=== PATIENT | male | born 2000 | race Asian ===

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

== ENCOUNTER 2021-03-24 12:50 | Emergency (ER) | payer SELFPAY ==
[~2021-03-24] VITALS: Ht 175.3 cm; Wt 113.4 kg
[2021-03-24 13:02] VITALS: BP_SYST 132
[2021-03-24 14:52] VITALS: BP_SYST 132
== END 2021-03-24 14:52 | disposition home or self-care (01) ==
LOC: SED 12:50
DX: S93.402A Sprain of unspecified ligament of left ankle, initial encounter (principal); X50.1XXA Overexertion from prolonged static or awkward postures, initial encounter; Y93.31 Activity, mountain climbing, rock climbing and wall climbing; Y92.89 Other specified places as the place of occurrence of the external cause; Y99.8 Other external cause status
CPT/HCPCS: 99283

== ENCOUNTER 2022-01-12 17:30 | Emergency (ER) | payer BC, MEDICAID ==
[~2022-01-12] VITALS: Ht 175.3 cm; Wt 113.4 kg
[2022-01-12 17:36] VITALS: BP_SYST 172
--- NOTE | 2022-01-12 19:16 | NUR ---
Patient to ER bed 07 to gown for evaluation. Side rails up.
--- NOTE | 2022-01-12 19:45 | NUR ---
Pt brought self in from home due to Left testicular pain and lower back pain. Pt reports onset of pain after sneezing earlier today. Denies any hematuria/dysuria. No acute signs of distress. Breathing adequately on RA.
[2022-01-12 19:54] LABS: BILIRUBIN,URINE NEGATIVE (NEGATIVE); BLOOD, URINE NEGATIVE (NEGATIVE); GLUCOSE,URINE NEGATIVE (NEGATIVE); KETONES,URINE NEGATIVE (NEGATIVE); LEUKOCYTE ESTERASE ,URINE NEGATIVE (NEGATIVE); NITRITE, URINE NEGATIVE (NEGATIVE); PROTEIN URINE NEGATIVE (NEGATIVE); UROBILINOGEN,URINE 0.2 (0.2-1.0)
[2022-01-12 20:19] LABS: CLARITY/URINE CLEAR (CLEAR)
[2022-01-12 20:20] LABS: COLOR,URINE YELLOW (YELLOW)
[2022-01-12] MEDS ORDERED: IBUPROFEN 600 MG TABLET PO ONE (21:00)
[2022-01-12] MEDS ORDERED: ACETAMINOPHEN 500 MG TABLET PO ONE (21:00)
--- NOTE | 2022-01-12 21:00 | NUR ---
Dr Luis evaluating patient at bedside
[2022-01-12] MEDS ORDERED: IBUP-1969 PO (21:46)
[2022-01-12 21:59] VITALS: BP_SYST 133
--- NOTE | 2022-01-12 22:00 | NUR ---
Patient given written and verbal discharge instructions and verbalizes understanding. ER MD discussed with patient the results and treatment provided. Patient in stable condition. ID arm band removed Rx of Ibuprofen given. Patient educated on pain management and to follow up with PMD. Pain Scale 2/10 Opportunity for questions provided and answered. Medication side effect fact sheet provided.
== END 2022-01-12 21:59 | disposition home or self-care (01) ==
LOC: SED 17:30
DX: N43.3 Hydrocele, unspecified (principal); M54.9 Dorsalgia, unspecified
CPT/HCPCS: 76870-TC; 81003; 99284

== ENCOUNTER 2024-07-03 09:25 | Emergency (ER) | payer BC, OTHER ==
[~2024-07-03] VITALS: Ht 175.3 cm; Wt 108.9 kg
[~2024-07-03 09:25] MED LIST: IBUP-1969 PO
[2024-07-03 09:48] VITALS: BP_SYST 130; PULSE 83; RESP 14; TEMP 97.5; O2SAT 95
[2024-07-03] MEDS: KETOROLAC TROMETHAMINE 60 MG/2 ML VIAL IM ONE (11:08)
[2024-07-03] MEDS: HYDROcodone/ACETAMIN 10-325 MG TAB PO ONE (11:10)
[2024-07-03] MEDS ORDERED: IBUP800T54 PO (12:08)
[2024-07-03] MEDS ORDERED: HYDR-3927 PO (12:08)
[2024-07-03 12:17] VITALS: BP_SYST 130; PULSE 83; RESP 14; TEMP 97.5; O2SAT 95
== END 2024-07-03 12:19 | disposition home or self-care (01) ==
LOC: SED 09:25
DX: S16.1XXA Strain of muscle, fascia and tendon at neck level, initial encounter (principal); X58.XXXA Exposure to other specified factors, initial encounter; Y93.89 Activity, other specified; Y92.89 Other specified places as the place of occurrence of the external cause; Y99.8 Other external cause status
CPT/HCPCS: 99283; 72040; 96372; J1885